=== PATIENT | female | born 1995 | race Caucasian/White ===

== ENCOUNTER 2020-05-23 05:29 | Inpatient (IN) | payer OTHER, SELFPAY ==
[~2020-05-23] VITALS: Ht 160 cm; Wt 86.2 kg
[2020-05-23] MEDS ORDERED: CITRIC ACID/SODIUM CITRATE 30 ML UDC PO SCH (05:40)
[2020-05-23] MEDS ORDERED: METHYLERGONOVINE 0.2 MG/ML AMP IM PRN ×2 (05:40→07:30)
[2020-05-23 06:06] LABS: BASOPHILS # (AUTO) 0.1 K/uL (0.00-0.22); BASOPHILS % (AUTO) 0.6 % (0.0-2.0); EOSINOPHILS # (AUTO) 0.1 K/uL (0-0.4); EOSINOPHILS % (AUTO) 1.3 % (0.0-4.0); HEMATOCRIT 36.9 % (36-48); HEMOGLOBIN 12.1 g/dL (12.0-16.0); LYMPHOCYTES # (AUTO) 1.9 K/uL (2.5-16.5); LYMPHOCYTES % (AUTO) 20.2 % (20.5-51.1); MEAN CORPUSCULAR HEMOGLOBIN 29 pg (27-31); MEAN CORPUSCULAR HGB CONC 33 g/dL (33-37); MEAN CORPUSCULAR VOLUME 88.4 fL (80-94); MONOCYTES # (AUTO) 0.7 K/uL (0.8-1.0); NEUTROPHILS # (AUTO) 6.5 K/uL (1.8-7.7); NEUTROPHILS % (AUTO) 69.9 % (42.2-75.2); PLATELET COUNT (AUTO) 200 K/uL (140-450); RED BLOOD CELL COUNT(AUTO) 4.18 MIL/uL (4.20-5.40); RED CELL DISTRIBUTION WIDTH 14.9 % (11.6-13.7); WHITE BLOOD COUNT (AUTO) 9.3 K/uL (4.8-10.8)
[2020-05-23] MEDS: LACTATED RINGERS 1,000 ML IV SCH ×2 (06:18→07:01)
[2020-05-23] MEDS ORDERED: ceFAZolin 1,000 MG VIAL ONE (06:22)
[2020-05-23] MEDS ORDERED: MIDAZOLAM 2 MG/2 ML VIAL ONE (07:11)
[2020-05-23] MEDS ORDERED: MORPHINE PRES FREE 10 MG/10 ML AMP IV ONE (07:11)
[2020-05-23] MEDS ORDERED: KETAMINE 500 MG/5 ML VIAL ONE (07:11)
[2020-05-23] MEDS ORDERED: ONDANSETRON 4 MG/2 ML VIAL ONE (07:22)
[2020-05-23] MEDS ORDERED: OXYTOCIN 10 UNITS/ML VIAL ONE (07:22)
[2020-05-23] MEDS ORDERED: ePHEDrine 50 MG/ML VIAL ONE (07:22)
[2020-05-23] MEDS ORDERED: diphenhydrAMINE 50 MG/ML VIAL ONE (07:22)
[2020-05-23] MEDS ORDERED: MEASLES, MUMPS, AND RUBELLA 1 VIAL SQVAC PRN (07:30)
[2020-05-23] MEDS ORDERED: oxyCODONE/APAP 5/325 MG 1 TAB TAB PO PRN (07:30)
[2020-05-23] MEDS ORDERED: OXYTOCIN 20 UNITS in LACTATED RINGERS 1,000 ML IV SCH (08:02)
[2020-05-23] MEDS ORDERED: diphenhydrAMINE 50 MG/ML VIAL IVP PRN (08:05)
[2020-05-23] MEDS ORDERED: ONDANSETRON 4 MG/2 ML VIAL IVP PRN ×2 (08:05)
[2020-05-23] MEDS ORDERED: HYDROmorphone 1 MG/ML AMP IVP PRN (08:05)
[2020-05-23] MEDS ORDERED: NALOXONE 0.4 MG/ML VIAL IVP PRN (08:05)
[2020-05-23 08:46] LABS: ALBUMIN 2.5 g/dL (3.4-5.0); ANION GAP 15.8 (8-16); CREATININE 0.6 mg/dL (0.6-1.3); POTASSIUM 3.8 mmol/L (3.5-5.1); TOTAL BILIRUBIN 0.3 mg/dL (0.0-1.0)
--- NOTE | 2020-05-23 08:50 | NUR ---
PATIENT HAS BEEN SCREENED AND CATEGORIZED LOW NUTRITION RISK. PATIENT WILL BE SEEN WITHIN 7 DAYS OF ADMISSION. 05/29/[address]
[2020-05-23 08:51] LABS: APPEARANCE,URINE HAZY (CLEAR); BILIRUBIN,URINE NEGATIVE (NEGATIVE); BLOOD, URINE NEGATIVE (NEGATIVE); COLOR,URINE YELLOW (YELLOW); NITRITE, URINE NEGATIVE (NEGATIVE); UGLUCOSE NEGATIVE (NEGATIVE)
[2020-05-23 09:47] LABS: RBC,URINE 0-5 /HPF (0-5)
[2020-05-23 09:49] LABS: LEUKOCYTE ESTERASE ,URINE 1+ (NEGATIVE); WBC,URINE 0-5 /HPF (0-5)
[2020-05-23] MEDS: KETOROLAC 30 MG/ML VIAL IVP SCH ×2 (11:55→18:02)
[2020-05-23] MEDS: ACETAMINOPHEN 325 MG TAB PO SCH ×2 (11:58→18:03)
[2020-05-23] MEDS ORDERED: PROMETHAZINE 25 MG/ML VIAL IVP PRN (18:45)
[2020-05-23] MEDS: OXYTOCIN 20 UNITS in LACTATED RINGERS 1,000 ML IV SCH (19:20)
[2020-05-24] MEDS: OXYTOCIN 20 UNITS in LACTATED RINGERS 1,000 ML IV SCH (03:30)
[2020-05-24] MEDS ORDERED: OXYTOCIN 20 UNITS/LR PREMIX 1,000 ML IV ONE (03:39)
[2020-05-24] MEDS: KETOROLAC 30 MG/ML VIAL IVP SCH ×2 (05:55)
[2020-05-24 06:00] LABS: BASOPHILS % (AUTO) 0.5 % (0.0-2.0); EOSINOPHILS # (AUTO) 0.1 K/uL (0-0.4); HEMATOCRIT 31.7 % (36-48); HEMOGLOBIN 10.5 g/dL (12.0-16.0); LYMPHOCYTES # (AUTO) 1.6 K/uL (2.5-16.5); LYMPHOCYTES % (AUTO) 16.7 % (20.5-51.1); MEAN CORPUSCULAR HEMOGLOBIN 29 pg (27-31); MEAN CORPUSCULAR HGB CONC 33 g/dL (33-37); MEAN CORPUSCULAR VOLUME 88.4 fL (80-94); MONOCYTES # (AUTO) 0.5 K/uL (0.8-1.0); MONOCYTES % (AUTO) 5.7 % (1.7-9.3); NEUTROPHILS # (AUTO) 7.3 K/uL (1.8-7.7); NEUTROPHILS % (AUTO) 76.1 % (42.2-75.2); PLATELET COUNT (AUTO) 167 K/uL (140-450); RED BLOOD CELL COUNT(AUTO) 3.59 MIL/uL (4.20-5.40); RED CELL DISTRIBUTION WIDTH 14.9 % (11.6-13.7); WHITE BLOOD COUNT (AUTO) 9.6 K/uL (4.8-10.8)
[2020-05-24] MEDS: ACETAMINOPHEN 325 MG TAB PO SCH ×2 (06:01)
[2020-05-24] MEDS ORDERED: oxyCODONE/APAP 5/325 MG 1 TAB TAB PO PRN (07:25)
[2020-05-24] MEDS: POLYETHYLENE GLYCOL 17 GM/PKT PO SCH ×2 (09:00→13:14)
[2020-05-24] MEDS: bisacodyL 10 MG SUPP RC SCH (09:00)
[2020-05-24] MEDS: IBUPROFEN 800 MG TAB PO PRN ×2 (13:50→22:38)
[2020-05-25] MEDS ORDERED: CAMERA MC ONE (03:29)
[2020-05-25] MEDS: IBUPROFEN 800 MG TAB PO PRN (07:41)
[2020-05-25] MEDS: bisacodyL 10 MG SUPP RC SCH (09:00)
[2020-05-25] MEDS: POLYETHYLENE GLYCOL 17 GM/PKT PO SCH (09:30)
== END 2020-05-25 11:10 | disposition home or self-care (01) | DRG 788 ==
LOC: MLD 05:29 → MFCC 09:45
PROVIDERS: ADMIT Obstetrics & Gynecology; ATTEND Obstetrics & Gynecology
PROC: 3E0234Z Introduction of Serum, Toxoid and Vaccine into Muscle, Percutaneous Approach (ICD-10-PCS; 2020-05-23)
PROC: 3E0134Z Introduction of Serum, Toxoid and Vaccine into Subcutaneous Tissue, Percutaneous Approach (ICD-10-PCS; 2020-05-23)
PROC: 10D00Z1 Extraction of Products of Conception, Low, Open Approach (ICD-10-PCS; principal; 2020-05-23 07:30)
DX: O23.43 Unspecified infection of urinary tract in pregnancy, third trimester (principal); Z3A.39 39 weeks gestation of pregnancy; Z37.0 Single live birth; Z20.828 Contact with and (suspected) exposure to other viral communicable diseases; Z23 Encounter for immunization
CPT/HCPCS: 36415; 51702; 80053; 81001; 85025; 86592; 86886; 86900; 86901; 87081; 87086; 90715; J0690; J0696; J1200; J1885; J2250; J2270; J2405; J2590; J7060; J7120; U0003-CS